=== PATIENT | female | born 2000 | race American Indian/Alaskan Native ===

== ENCOUNTER 2021-11-01 11:05 | Emergency (ER) | payer MEDICAID ==
[2021-11-01] MEDS ORDERED: DEXAMETHASONE 4 MG TAB PO ONE (14:22)
[2021-11-01] MEDS ORDERED: KETOROLAC 10 MG TAB PO ONE (14:23)
[2021-11-01] MEDS ORDERED: METOCLOPRAMIDE 10 MG TAB PO ONE (14:23)
[2021-11-01] MEDS ORDERED: diphenhydrAMINE 25 MG CAP PO ONE (14:23)
--- NOTE | 2021-11-01 15:40 | Cat Scan Report ---
CT HEAD WITHOUT CONTRAST INDICATION / CLINICAL INFORMATION: head injury, worsening rao. TECHNIQUE: All CT scans at this location are performed using CT dose reduction for ALARA by means of automated exposure control. COMPARISON: None available. FINDINGS: BRAIN PARENCHYMA: No acute intracranial hemorrhage. No evidence of recent infarct. No mass effect or midline shift. VENTRICULAR SYSTEM/EXTRA-AXIAL SPACES: Ventricles are normal for age. No extra-axial fluid collection . ORBITS: Normal as visualized. SKELETAL SYSTEM/SOFT TISSUES: Normal bones and soft tissues. PARANASAL SINUSES/MASTOID AIR CELLS: No significant abnormality. ADDITIONAL FINDINGS: None. IMPRESSION: 1. No acute intracranial abnormality. Signer Name: Ja Amaral MD Signed: 11/01/2021 3:36 PM Workstation Name: [id number]
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
[2021-11-01 16:18] VITALS: BP 118/70
== END 2021-11-01 16:18 | disposition home or self-care (01) ==
LOC: ED 11:05
DX: J32.9 Chronic sinusitis, unspecified (principal)
CPT/HCPCS: 70450; 99283; J8540